=== PATIENT | male | born 1985 | race Caucasian/White ===

== ENCOUNTER 2019-05-26 13:49 | Emergency (ER) | payer SELFPAY ==
[~2019-05-26] VITALS: Ht 172.7 cm; Wt 81.6 kg
--- NOTE | 2019-05-26 14:04 | NUR ---
PT IS IN ROOM #2A. DR CAMPBELL EVALUATED THE PT.
--- NOTE | 2019-05-26 14:19 | NUR ---
PT WAS D/C'd TO HOME. D/C INSTRUCTIONS GIVEN TO THE PT.
[2019-05-26 14:21] VITALS: BP 139/77
== END 2019-05-26 14:22 | disposition home or self-care (01) ==
LOC: ER 13:49
DX: S80.12XA Contusion of left lower leg, initial encounter (principal); W23.0XXA Caught, crushed, jammed, or pinched between moving objects, initial encounter; Y93.89 Activity, other specified; Y92.89 Other specified places as the place of occurrence of the external cause; Y99.8 Other external cause status
CPT/HCPCS: A4663